=== PATIENT | female | born 1945 | race Caucasian/White ===

== ENCOUNTER 2017-03-31 00:42 | Inpatient (IN) | payer MEDICARE ==
[2017-03-31] VITALS (38 sets, daily range): BP systolic 96–181; BP diastolic 51–96; Ht 175.3 cm; Wt 58.4 kg
[~2017-03-31] VITALS: Ht 175.3 cm; Wt 58.4 kg
--- NOTE | ~2017-03-31 | HEMODYNAMI ---
PATIENT:PALOMA CALI MEDICAL RECORD: [id number] : 47 LOCATION:[place] [address] ADMISSION DATE: 03/31/17 Generatedon:03/31/201710:21 Patient name: PALOMA CALI Patient #: [id number] SSN: : 1945 Date of study: 03/31/2017 Page: Of Hemodynamic Procedure Report Patient Data Patient Demographics Procedure consent was obtained First Name: PALOMA Gender: Female Last Name: VIRAJ : 1945 Patient #: [id number] Age: 71 year(s) Race: Additional ID: [id number] Contact details [address]: [address] [place] [address] State: [place] City: [place] Zip code: [address] Admission Admission Data Admission Date: 03/31/2017 Admission Time: 0:42 Room #: [facility] Procedure Procedure Types Cath Procedure Diagnostic Procedure LHC [facility] w/Coronaries PCI Procedure Coronary Stent Initial Miscellaneous Procedures Moderate Sedation up to 30 minutes Procedure Description Procedure Date Procedure Date: 03/31/2017 Procedure Start Time: 9:46 Procedure End Time: 10:20 Procedure Staff Name Function Capo Casper MD Performing Physician Breanna Rey RT Scrub Neetu Sands RN Nurse Isaac Hansen RT Monitor Procedure Data Cath Procedure Fluoroscopy Diagnostic fluoroscopy Total fluoroscopy Time: 8 time: 8 min min Diagnostic fluoroscopy Total fluoroscopy dose: 477 dose: 477 mGy mGy Contrast Material Contrast Material Type Amount (ml) Isovue 300 103 Entry Location Entry Primary Successful Side Size Upsize Upsize Entry Closure Succes sful Closure Location (Fr) 1 (Fr) 2 (Fr) Remarks Device Remarks Femoral Right 5 Fr 6 Fr Exoseal artery Short Estimated blood loss: 10 ml Diagnostic catheters Device Type Used For End Catheter Placement Cordis 5Fr 3DRC Catheter Procedure (MP) Cordis 5Fr JL 4.0 Procedure Catheter (MP) Cordis 5Fr Pigtail Procedure Catheter (MP) Procedure Complications No complications Procedure Medications Medication Administration Route Dosage Oxygen NC 4 l/min Lidocaine 2% added to field 20 Heparin Flush Bag added to field 2 bags (1000units/500ml NS) 0.9% NaCl I.V. 100 ml/hr Versed I.V. 0.5 mg Fentanyl I.V. 25 mcg Solumedrol I.V. 125 mg Versed I.V. 0.5 mg Fentanyl I.V. 25 mcg Fentanyl I.V. 25 mcg Heparin Bolus I.V. 4000 units Versed I.V. 0.5 mg Versed I.V. 0.5 mg Fentanyl I.V. 25 mcg Hemodynamics Rest Heart Rate: 119 (bpm) Pressure Samples Time Site Value (mmHg) Purpose Heart Use Rate(bpm) 9:56 LV 133/-12,-3 Snapshot 98 9:56 AO 153/74(101) Pullback 94 9:56 LV 148/-2,24 Pullback 94 Gradients Valve Time Site 1 Site 2 Mean SEP/DFP Peak To Heart Use (mmHg) (sec/min) Peak Rate (mmHg) (bpm) Aortic 9:56 LV AO 0 10 0 94 148/-2,24 153/74(101) Calculations Valve P-P Mean Valve Index Valve Source Name Gradient Area Flow (cm2) Aortic 0 0 0 0 Snapshots Pre Cath Intra NCS Post Cath Vital Signs Time Heart Resp SPO2 etCO2 HY1ldev NIBP (mmHg) Rhythm Pain Sedatio n Rate (ipm) (%) (mmHg) (mmHg) Status Level (bpm) 9:32:48 91 22 96 0 0 158/89(107) NSR 0 (11) 10(A) , No pain 9:37:47 121 21 99 0 0 Measuring NSR 0 (11) 10(A) , No pain 9:39:11 115 19 98 0 0 Time NSR 0 (11) 10(A) Exceeded , No pain 9:43:29 102 19 96 0 0 147/84(103) NSR 0 (11) 10(A) , No pain 9:47:54 96 15 94 0 0 127/54(73) NSR 0 (11) 9(A) , No pain 9:52:03 100 15 96 0 0 117/70(101) NSR 0 (11) 9(A) , No pain 9:56:05 104 16 95 0 0 119/73(92) NSR 0 (11) 9(A) , No pain 10:00:11 94 14 96 0 0 119/78(105) NSR 0 (11) 9(A) , No pain 10:04:17 97 16 96 0 0 119/78(92) NSR 0 (11) 9(A) , No pain 10:08:20 91 16 94 0 0 139/84(123) NSR 0 (11) 9(A) , No pain 10:13:20 103 14 98 0 0 Measuring NSR 0 (11) 10(A) , No pain 10:14:41 103 18 97 0 0 Time NSR 0 (11) 10(A) Exceeded , No pain 10:19:02 105 21 99 0 0 166/106(146) NSR 0 (11) 10(A) , No pain Medications Time Medication Route Dose Verified Delivered Reason Notes Effectiveness by by 9:32:51 Oxygen NC 4 Capo Buffie used for l/min [facility] garnica MD 9:34:05 Solumedrol I.V. 125 Capo Buffie used for mg [facility] garnica MD 9:37:58 Lidocaine 2% added 20ml Capo Capo for local to vial [facility] anesthetic field MD TORIBIO 9:38:04 Heparin Flush added 2 Capo Capo used for Bag to bags [facility] procedure (1000units/500ml field MD TORIBIO NS) 9:38:15 0.9% NaCl I.V. 100 Capo Buffie Per physician ml/hr [facility] Tig[facility] Sands RN, MD 9:44:07 Versed I.V. 0.5 Capo Buffie for sedation mg [facility] Sands RN, MD 9:44:14 Fentanyl I.V. 25 Capo Buffie for sedation mcg [facility] Tig[facility] Sands RN, MD 9:51:46 Versed I.V. 0.5 Capo Buffie for sedation mg [facility] Tig[facility] Sands RN, MD 9:51:50 Fentanyl I.V. 25 Capo Buffie for sedation mcg [facility] Tig[facility] Sands RN, MD 9:55:16 Fentanyl I.V. 25 Capo Buffie for sedation mcg [facility] Tig[facility] Sands RN, MD 9:56:25 Heparin Bolus I.V. 4000 Capo Buffie for verifi ed units [facility] Tigre Sands RN anticoagulation with dr MD copeland 10:02:00 Versed I.V. 0.5 aCpo De [place] for sedation mg [facility] Tigre Sands RN, MD 10:05:31 Fentanyl I.V. 25 Capo De Anda for sedation mcg [facility] Tig[facility] Sands RN, MD 10:05:35 Versed I.V. 0.5 Capo De And[place] for sedation mg [facility] Tig[facility] Sands RN, MD Procedure Log Time Note 9:14:07 Neetu Sands RN sent for patient. Start room use. 9:14:08 Time tracking: Regular hours 9:14:12 Plan of Care:Hemodynamics will remain stable., Cardiac rhythm will remain stable., Comfort level will be maintained., Respiratory function will remain adequate., Patient/ family verbilizes understanding of procedure., Procedure tolerated without complication., Recovers from procedure without complications.. 9:24:19 Patient received from CVICU to CCL 1 Alert and oriented. Tansferred to table in Supine position. 9:24:20 Warm blankets applied, and andrey hugger turned on for patient comfort. 9:24:21 Correct patient and procedure confirmed by team. 9:24:22 Signed procedure consent form obtained from patient. 9:24:23 ECG and BP/O2 sat monitors applied to patient. 9:31:37 Vital chart was started 9:32:51 Oxygen 4 l/min NC was administered by Neetu Sands RN; used for procedure; 9:34:05 Solumedrol 125 mg I.V. was administered by Neetu Sands RN; used for procedure; 9:37:58 Lidocaine 2% 20ml vial added to field was administered by Capo Casper MD; for local anesthetic; 9:38:04 Heparin Flush Bag (1000units/500ml NS) 2 bags added to field was administered by Capo Casper MD; used for procedure; 9:38:15 0.9% NaCl 100 ml/hr I.V. was administered by Neetu Sands RN; Per physician; 9:39:08 Baseline sample Acquired. 9:39:16 Rhythm: sinus tachycardia 9:39:39 H&P Date Dictated: 03/31/2017 Within 30 days and on chart.. 9:39:39 Pre-procedure instructions explained to patient. 9:39:40 Pre-op teaching completed and patient verbalized understanding. 9:39:47 Family unavailable. 9:39:48 Patient NPO since Midnight. 9:39:52 Is the patient allergic to Iodine/contrast media? Yes. 9:40:11 Was the patient premedicated? Yes 9:40:13 Is patient on blood thinner?Yes 9:40:16 ACC The patient was administered the following blood thiners within the last 24 hours: ACCPlavix 9:40:19 Patient diabetic? No. 9:40:21 Patient not . Patient is over age 55. 9:40:23 Previous problem with sedation/anesthesia? No ? 9:40:45 Snore? Yes 9:40:47 Sleep apnea? No 9:40:48 Deviated septum? No 9:40:49 Opens mouth fully? Yes 9:40:49 Sticks out tongue? Yes 9:40:51 Airway obstruction? No ? 9:40:55 Dentures? Yes OUT 9:41:00 Pre procedure: right dorsailis pedis pulse 1+ Palpable, but thready & weak; easily obliterated 9:41:02 Patient pain scale 0/10 ?. 9:41:10 IV patent on arrival in left forearm with 0.9% NaCl at [facility]. 9:41:12 Lab results completed and on chart. 9:41:16 Right groin area was prepped with chlora-prep and draped in sterile fashion 9:41:17 Alarms reviewed by R. N. 9:41:17 Sharps counted by scrub and verified by R.N. 9:41:25 Use device set Femoral Dx 9:41:30 Tegaderm 4 x 4 opened to sterile field. 9:41:31 Acist Hand Control opened to sterile field. 9:41:31 Acist Manifold opened to sterile field. 9:41:33 Acist Syringe opened to sterile field. 9:41:33 Bag Decanter opened to sterile field. 9:41:33 Medline Cath Pack opened to sterile field. 9:41:34 Terumo 5Fr [place] Sheath opened to sterile field. 9:41:34 St Mikael 260cm J .035 wire opened to sterile field. 9:41:35 Diagnostic Infinity 5Fr Multipack catheter opened to sterile field. 9:43:48 Zero performed for pressure channel P1 9:43:56 --------ALL STOP TIME OUT------ 9:43:56 Final Timeout: patient, procedure, and site verified with staff and physician. All members of the team are in agreement. 9:43:58 Right groin site verified by team. 9:44:01 Physical assessment completed. ASA score P 3 - A patient with severe systemic disease as per Cpao Casper MD. 9:44:04 Sedation plan: IV Moderate Sedation Versed, Fentanyl 9:44:07 Versed 0.5 mg I.V. was administered by Neetu Sands RN; for sedation; 9:44:14 Fentanyl 25 mcg I.V. was administered by Neetu Sands RN; for sedation; 9:46:22 Procedure started. 9:46:22 Full Disclosure recording started 9:46:26 Local anesthetic to right femoral artery with Lidocaine 2% by Capo Casper MD.INITIAL ACCESS ONLY 9:49:46 A 5 Fr sheath was inserted into the Right Femoral artery 9:50:00 Terumo ADVANTAGE 260CM glide wire opened to sterile field. 9:50:05 A Cordis 5Fr 3DRC Catheter (MP) was advanced over the wire and used for Procedure. 9:50:19 Glidewire used to advance catheter. 9:51:45 RCA angiography performed. 9:51:46 Versed 0.5 mg I.V. was administered by Neetu Sands RN; for sedation; 9:51:50 Fentanyl 25 mcg I.V. was administered by Neetu Sands RN; for sedation; 9:51:54 Catheter exchanged over wire. 9:53:21 A Cordis 5Fr JL 4.0 Catheter (MP) was advanced over the wire and used for Procedure. 9:53:32 LCA angiography performed. 9:53:59 Catheter exchanged over wire. 9:55:16 Fentanyl 25 mcg I.V. was administered by Neetu Sands RN; for sedation; 9:55:18 A Cordis 5Fr Pigtail Catheter (MP) was advanced over the wire and used for Procedure. 9:55:35 Terumo 6Fr [place] Sheath opened to sterile field. 9:55:35 Mcnamara Whisper J 300cm 0.014 guide wire opened to sterile field. 9:55:36 [employer]R [employer] Launcher 6Fr HS I guide catheter opened to sterile field. 9:55:36 Learnmetrics BasixCompak Inflation Kit opened to sterile field. 9:56:25 Heparin Bolus 4000 units I.V. was administered by Neetu Sands RN; for anticoagulation; verified with dr copeland 9:56:28 LV angiography performed. 9:56:30 LV gram done using LOPEZ 9:56:40 EF : 55 % 9:56:49 Injector settings: Ml/sec: 10, Volume: 20, 9:56:51 LV hemodynamics recorded. 9:56:53 Catheter exchanged over wire. 9:57:10 Sheath upsized to a 6 Fr Short. 9:57:30 Study PCI Site: Elim Ira mRCA has 90% stenosis. 9:57:34 ACC Pre-intervention KALINA Flow is 3. 9:58:04 6 Fr HS 1 guide catheter was inserted over the wire 9:59:16 Whisper wire advanced. 10:01:12 Wire advanced across lesion. 10:02:00 Versed 0.5 mg I.V. was administered by Neetu Sands RN; for sedation; 10:02:05 Haakon 3.0x15 balloon advanced distal to lesion, Whisper wire exchanged for Choice PT XS. 10:02:15 [place] Intelleflex Choice PT Extra Support J 300cm .014 gu opened to sterile field. 10:02:40 Inflation number: 1 A [place] Sci Haakon 3.0 X 15 balloon was prepped and advanced across the Prox RCA, then inflated to 10 JAYJAY for 0:30 (min:sec). 10:03:15 Multiple inflations made at 10 Atms. 10:05:31 Fentanyl 25 mcg I.V. was administered by Neetu Sands RN; for sedation; 10:05:35 Versed 0.5 mg I.V. was administered by Neetu Sands RN; for sedation; 10:06:08 Multiple inflations made at 10 Atms. 10:06:44 Balloon removed over the wire. 10:09:20 Inflation Number: 2 A QuizFortunetronic Integrity 3.0 X 30 stent was prepped and advanced across the Prox RCA. The stent was deployed at 14 JAYJAY for 0:45 (min:sec). 10:10:41 ACC Post-intervention KALINA Flow is 3. 10:10:43 Stent catheter was removed intact over wire. 10:10:43 Wire removed. 10:10:44 Guide catheter removed. 10:10:52 Cordis 6Fr Exoseal opened to sterile field. 10:11:05 Sheath removed intact; hemostasis achieved with Exoseal to the Right Femoral artery. 10:11:07 Procedure ended.(Physican Out) 10:11:30 Fluoroscopy time 08.00 minutes. 10:11:58 Flurop Dose total: 477 10:11:58 Fluoroscopy dose: 477 mGy 10:12:02 Contrast amount:Isovue 300 103ml. 10:12:04 Sharps counted by scrub and verified by R.N. 10:12:05 Insertion/operative site no bleeding no hematoma. 10:12:08 Post-op/insertion site Right Femoral artery dressed using a 4 x 4 and Tegaderm. 10:12:09 Post Procedure Pulses reassessed and unchanged 10:12:13 Post-procedure physical assessment completed. ASA score P 3 - A patient with severe systemic disease as per Capo Casper MD. 10:12:16 Post procedure rhythm: unchanged. 10:12:19 Estimated blood loss: 10 ml 10:12:20 Post procedure instruction explained to patient.Patient verbalizes understanding. 10:12:36 Procedure type changed to Cath procedure, Diagnostic procedure, LHC, LHC w/Coronaries, PCI procedure, Coronary Stent Initial, Miscellaneous Procedures, Moderate Sedation up to 30 minutes 10:12:38 Patient needs reinforcement of post procedure teaching. 10:12:41 Procedure Complication : No complications 10:13:14 Procedure and supply charges have been captured, reviewed, submitted and are correct. 10:19:02 Vital chart was stopped 10:19:03 See physician's report for complete and final results. 10:20:17 Due to the pt's inability to keep right leg down, Femstop placed at 140. 10:20:26 St Mikael Femstop Arch Gold opened to sterile field. 10:20:47 Report given to CVICU. 10:20:50 Patient transfered to CVICU with Bed. 10:20:52 Procedure ended. 10:20:52 Full Disclosure recording stopped 10:20:58 End room use (Document Last) Intervention Summary Intervention Notes Time ActionType Lesion and Equipment Action# Pressure Duration Attributes Used 10:02:40 Inflate Prox RCA [place] 1 10 00:30 balloon Sci Haakon 3.0 X 15 balloon 10:09:20 [address] stent Prox RCA Medtronic 2 14 00:45 Integrity 3.0 X 30 stent Device Usage Item Name Manufacture Quantity Catalog Number Hospital Part Current Mini mal Lot# / Charge Number Stock Stock Serial# Code Tegaderm 4 3M 1 [id number] [id number] [id number] 5 x 4 Acist Hand Acist 1 07734 842332 961843 614022 5 Control Medical Systems Inc Acist Acist 1 85635 673756 623157 226706 5 Manifold Medical Systems Inc Acist Acist 1 14022 292481 883059 933828 20 Syringe Medical Systems Inc Bag Microtek 1 2002S 261355 19570 434076 5 DeceLearning Connections Medical Inc. Medline Cardinal 1 [id number] 341990 97812 893695 5 Cath Pack Health Terumo 5Fr Terumo 1 [id number] 435006 640345 839142 [address] [place] [address] St Mikael 1 [id number] 415371 066212 896136 30 260cm J .035 wire Diagnostic Cardinal 1 [id number] 164771 03214 536525 30 Infinity Health 5Fr Multipack catheter Terumo Terumo 1 [id number] 233383 097375 5 ADVANTAGE 260CM glide wire Cordis 5Fr Cardinal 1 [id number] 5 3DRC Health Catheter (MP) Cordis 5Fr Cardinal 1 411871 5 JL 4.0 Health Catheter (MP) Cordis 5Fr Cardinal 1 [id number] 5 Pigtail Health Catheter (MP) Terumo 6Fr Terumo 1 [id number] 006982 961858 853388 40 [place] Sheath Mcnamara Mcnamara 1 [id number] 530968 282485 984869 5 Whisper J Vascular 300cm 0.014 guide wire Medtronic Medtronic 1 [id number] 198100 67791 381864 1 Launcher 6Fr HS I guide catheter Merit Merit 1 BH0073 221775 469595 223108 15 BasixCompak Medical Inflation Kit [place] Sci [place] 1 [id number] 24081005 951132 5 Choice PT Scientific Extra Support J 300cm .014 gu [place] Sci [place] 1 [id number] 927329 989415 525250 1 [id number] Haakon Scientific 3.0 X 15 balloon Medtronic Medtronic 1 [id number] 143418 880826 9 [id number] Integrity 3.0 X 30 stent Cordis 6Fr Cardinal 1 EX600 642776 424656 819839 [address] [facility] 1 [id number] 738053 344477 062951 5 Femstop Arch Gold Signature Audit Novice Stage Time Signature Unsigned Intra-Procedure 03/31/2017 Isaac Hansen 10:21:10 AM RT(R) Signatures Monitor : Isaac Hansen RT Signature : Date : Time : [place] [id number] [place] [address]
--- NOTE | 2017-03-31 00:40 | NUR ---
ARRIVED TO ROOM CV06 VIA AMBULANCE STRETCHER. AWAKE, AMSWERS MOST QUESTIONS APPROPRIATELY. LEFT AC 20G PIV SALINE LOCKED. INCONTINENT BRIEF ON AND CLEAN. LEFT HEEL ULCER NOTED TO LEFT LEG. PLACED ON CONTINUOUS MONITORING EQUIPMENT. ST WITH FREQUENT PAC'S. O2 @ 2LPM/NC. LEFT LEG MOTTLED TO LOWER HALF OF LEG AND COOL TO TOUCH. UNABLE TO FIND A PEDAL PULSE TO LLE. POSSIBLE INTERMITTENT POSTERIOR TIBIAL TO LLE VIA DOPPLER. FEMORAL LLE PALPATED AND AUDIBLE BY DOPPLER. LEFT KNEE SCAB NOTED AND MEASURED WOUNDS. LEFT SIDED WEAKNESS MORE LEG THAN ARM FROM PREVIOUS STROKE. BEGINNING ADMISSION ASSESSMENT AND HISTORY.
--- NOTE | 2017-03-31 01:08 | NUR ---
12-LEAD EKG OBTAINED.
--- NOTE | 2017-03-31 01:35 | NUR ---
DR. PALM RETURNED PAGE. INFORMED OF EKG RHYTHM AND LEFT LEG WITHOUT PULSE BUT THE OBVIOUS FEMORAL. NEW ORDERS RECEIVED.
--- NOTE | 2017-03-31 01:50 | NUR ---
CORDARONE GTT STARTED @ 0.5MG/MIN TO LEFT AC PIV. IV WORKING WELL.
[2017-03-31 02:26] LABS: BASOPHILS 0.1 % (0-2); EOSINOPHILS 0.4 % (0-7); HEMATOCRIT 31.7 % (36.0-48.0); HEMOGLOBIN 10.5 g/dL (12-16); IMMATURE GRANULOCYTES 0.7 % (0-5); LYMPHOCYTES 18.7 % (15-50); MCH 29.2 pg (26.0-34.0); MCHC 33.1 g/dL (31.0-37.0); MCV 88.3 fL (80.0-100.0); MEAN PLATELET VOLUME 8.8 fL (7.4-10.4); MONOCYTES 7.6 % (2-11); NEUTROPHILS 72.5 % (40-80); PLATELET COUNT 260 10x3/uL (130-400); RBC 3.59 10x6/uL (4.00-5.40); RDW 14.4 % (11.5-14.5); WBC 9.6 10x3/uL (4.8-10.8)
[2017-03-31 02:41] LABS: INR 1.05 (0.85-1.17); PROTIME 13.6 SECONDS (11.6-15.0)
[2017-03-31 02:43] LABS: ALBUMIN 2.5 g/dL (3.4-5.0); ALKALINE PHOSPHATASE 175 U/L (46-116); ALT (SGPT) 27 U/L (10-68); BILIRUBIN - TOTAL 0.57 mg/dL (0.2-1.3); CALCIUM 9.6 mg/dL (8.5-10.1); CREATININE - SERUM 0.7 mg/dL (0.6-1.3); GLUCOSE 101 mg/dL (74-106); PROTEIN - SERUM 7.1 g/dL (6.4-8.2); UREA NITROGEN 26 mg/dL (7-18); eGFR NON AFRICAN AMERICAN 88 mL/min (90-120)
[2017-03-31 02:49] LABS: CALC OSMOLALITY 246 mosm/kg (275-300); CARBON DIOXIDE 23.9 mmol/L (21.0-32.0); CHLORIDE - SERUM 94 mmol/L (98-107); POTASSIUM - SERUM 3.4 mmol/L (3.5-5.1); SODIUM 120 mmol/L (136-145)
[2017-03-31] MEDS ORDERED: LYRICA75 MG PO (02:58)
[2017-03-31] MEDS ORDERED: REMERON15 MG PO (03:00)
[2017-03-31] MEDS ORDERED: CYCLOBENZAPRINE10 MG PO (03:00)
[2017-03-31] MEDS ORDERED: IMODIUM2 MG PO (03:05)
[2017-03-31] MEDS ORDERED: METOPROLOL TART50 MG PO (03:06)
[2017-03-31] MEDS ORDERED: K-DUR20 MEQ PO (03:07)
[2017-03-31] MEDS ORDERED: PRAVACHOL20 MG PO (03:07)
[2017-03-31] MEDS ORDERED: MILK OF MAGNESI30 ML PO (03:09)
[2017-03-31] MEDS ORDERED: ACETAMINOPHEN325 MG PO (03:09)
[2017-03-31] MEDS ORDERED: MAG-OX 400 MG400 MG PO (03:11)
[2017-03-31] MEDS ORDERED: BIOFREEZE118 ML TOPICAL (03:11)
[2017-03-31] MEDS ORDERED: STRESSTABS WITH1 TAB PO (03:12)
[2017-03-31] MEDS ORDERED: ULTRAM50 MG PO (03:12)
[2017-03-31] MEDS ORDERED: ASCORBIC ACID500 MG PO (03:13)
[2017-03-31] MEDS ORDERED: FLOVENT HFA 22012 GM INH (03:13)
[2017-03-31] MEDS ORDERED: VENTOLIN HFA18 GM INH ×2 (03:14→03:15)
[2017-03-31 03:16] LABS: CKMB 41.1 U/L (0.0-3.6); CREATINE KINASE 408 UL (21-215); TROPONIN-I 6.188 ng/mL (0.000-0.060)
[2017-03-31] MEDS ORDERED: LOPID600 MG PO (03:16)
[2017-03-31] MEDS ORDERED: PHENYTEK200 MG PO (03:17)
[2017-03-31] MEDS ORDERED: NEXIUM40 MG PO (03:17)
[2017-03-31] MEDS ORDERED: CELEXA20 MG PO (03:18)
[2017-03-31] MEDS ORDERED: PLAVIX75 MG PO (03:18)
[2017-03-31] MEDS ORDERED: PENTOXIFYLLINE400 MG PO (03:18)
[2017-03-31] MEDS ORDERED: VASOTEC20 MG PO (03:19)
[2017-03-31] MEDS ORDERED: HCTZ25 MG PO (03:19)
--- NOTE | 2017-03-31 03:40 | NUR ---
DR. PALM PAGED AND THEN INFORMED OF INCREASED HEART RATE 150'S; CRITICAL LAB [id number]; ALSO TOLD OF SODIUM AND POTASSIUM RESULTS. NEW ORDERS RECEIVED. WILL MONITOR.
--- NOTE | 2017-03-31 03:45 | NUR ---
LEFT AC 20G PIV BEEN PULLED OUT BY PATIENT. NEW IV STARTED X1 ATTEMPT TO LEFT FA 20G. IV CARDIZEM BOLUS GIVEN PRESCRIBED. WILL MONITOR.
--- NOTE | 2017-03-31 04:37 | NUR ---
O2 SATS 85%. PULLED UP AND TURNED TO RT SIDE. CONSTANTLY PICKING AT VAGINA AREA THINKING THERE IS SOME STICKY STUFF ON HER HAIR. WET WIPE GIVEN PER REQUEST AND WIPED SELF DOWN. O2 HAD TO INCREASE TO 6L/MIN. WILL MONITOR.
--- NOTE | 2017-03-31 06:00 | NUR ---
PATIENT'S CALLED. INFORMED OF UPCOMING PROCEDURE TODAY. HE WON'T BE HERE UNTIL AFTER THAT REPORTED. WILL MONITOR.
--- NOTE | 2017-03-31 06:20 | NUR ---
PULLED UP IN BED AND TURNED TO RT SIDE TO KEEP OFF LEFT. NO URINE NOTED IN INCONTINENT BRIEF. WILL MONITOR.
[2017-03-31 09:11] LABS: BASOPHILS 0.1 % (0-2); EOSINOPHILS 0.6 % (0-7); HEMATOCRIT 35.2 % (36.0-48.0); HEMOGLOBIN 11.6 g/dL (12-16); IMMATURE GRANULOCYTES 0.7 % (0-5); LYMPHOCYTES 13.6 % (15-50); MCH 29.4 pg (26.0-34.0); MCV 89.1 fL (80.0-100.0); MEAN PLATELET VOLUME 8.7 fL (7.4-10.4); MONOCYTES 6.2 % (2-11); NEUTROPHILS 78.8 % (40-80); PLATELET COUNT 249 10x3/uL (130-400); RBC 3.95 10x6/uL (4.00-5.40); RDW 14.3 % (11.5-14.5); WBC 8.4 10x3/uL (4.8-10.8)
[2017-03-31 09:22] LABS: CALC OSMOLALITY 257 mosm/kg (275-300); CALCIUM 9.6 mg/dL (8.5-10.1); CARBON DIOXIDE 23.6 mmol/L (21.0-32.0); CHLORIDE - SERUM 95 mmol/L (98-107); CREATININE - SERUM 0.6 mg/dL (0.6-1.3); GLUCOSE 101 mg/dL (74-106); POTASSIUM - SERUM 3.4 mmol/L (3.5-5.1); SODIUM 127 mmol/L (136-145); UREA NITROGEN 21 mg/dL (7-18); eGFR NON AFRICAN AMERICAN > 90 mL/min (90-120)
--- NOTE | 2017-03-31 11:28 | NUR ---
0730-RECIEVED AWAKE AND ALERT-AWARE OF SITUATION AND PLANNED PRODEDURE-PRIOR TO SIGNING FOR CARDIAC CATH PROCEDURE-PT STRESSED SHE IS A DO NOT RECESISTATE-CLARIFIED WITH PT THIS MEANS NO CHEST COMPRESSIONS IF HEART STOPS-NO LIFE SUPPORT MEASURES-PT STATED YES THATS RIGHT -MY HAS PAPER WORK-HAD PT SIGN [facility] NO CODE SHEET AND INITIAL-WITH RN WITNESS-INFORMED DR BURTON OF SAME-AND SIGNED WELL AFTER SPOKE WITH PT-CONSENT OBTAINED FOR CARDIAC CATH AND INFORMED OF RISK AND BENEFIT-PT AGREED TO PROCEED-OFFICE PROFESSIONAL STAFF NOTIFIED OF PT REQUEST REGARDING CODE STATUS 0850-PT TO OFFICE PROFESSIONAL -CORDARONE REMAINS AT 1MG/MIN-CONTINUED PERIODS OF AFIB DIRECTED BY DR BURTON 1045-RETURNED TO CV6-ALERT AND RESPONDS EASILY TO VERBAL-SUPINE -R PP NOT ABLE WITH DOPPLER-FEM STOP DECREASED TO 100MM FROM 120-HEMOSTASIS MAINTAINED AND PP FAINT WITH DOPLER 1100-FEMSTOP DECREASED TO 80MM-PP FAINT WITH DOPPLER-NO CHANGE-PRODUCTIVE COUGH 1115-FEMSTOP DECREASED TO 60MM-PP FAINT WITH DOPPLER
--- NOTE | 2017-03-31 17:25 | NUR ---
1230-FEMSTOP OFF-NOTED BOUNDING R PPP-DOPPLER LEFT-NOTED QUARTER SIZE HEMATOMA TO SITE FIRM TO TOUCH- 5972-[id number]-N GROIN REMAINS THE SAME- 1500-INCONTINENT OF URINE-COMPLETE SKIN CARE DONE AND REPOSITIONED-EXPRESSED CONCERN REGARDING FAMILY WHERE ABOUTS-CALLED NUMBER PROVIDED AND NO ANSWER 1600-DAUGHTER RETURNED CALL-INFORMED SAME OF PT CONCERN 1730--ASSISTED WITH DINNER TRAY-KBRN
--- NOTE | 2017-03-31 19:25 | NUR ---
SHIFT ASSESSMENT COMPLETED. SEE ASSESSMENT FLOWSHEET. AWAKE. ANSWERS QUESTIONS APPROPRIATELY. LEFT FOOT MOTTLED AND ELEVATED ONTO PILLOWS. NO PULSE NOTED IN LEFT PEDAL AREA OR P.T. DOPPLERED POPLITEAL PULSE. WILL MONITOR.
--- NOTE | 2017-03-31 20:49 | NUR ---
PLACED BACK ONTO O2 VIA NC AT 2LPM DUE TO O2 SATS 90% ON ROOM AIR. ST TO AFIB STILL NOTED ON THE MONITOR IN THE 110'S. CORDARONE INFUSING TO LEFT FA PIV 20G AT 0.5MG/MIN OR 16.7ML/HR. NS @ 5ML/HR RESTARTED TO ORDERED. WILL MONITOR.
[2017-03-31] MEDS ORDERED: HYDROCODONE-APA1 TAB PO (21:57)
--- NOTE | 2017-03-31 21:59 | NUR ---
DR. VERDUGO CALLED AND INFORMED OF PATIENT'S DAUGHTER CONCERN FOR HOME MEDS AND ESPECIALLY ANTI-SEIZURE MEDS. NEW ORDERS RECEIVED FROM DR. VERDUGO.
--- NOTE | 2017-03-31 22:16 | NUR ---
PO HYDROCODONE GIVEN. WANTED TO TAKE ONLY 1 OUT OF THE ORDERED 2 PILLS AT THIS TIME. WILL MONITOR AND AWAIT OTHER NEWLY ORDERED MEDS.
--- NOTE | 2017-03-31 22:45 | NUR ---
PO DILANTIN GIVEN NOW OBTAINED FROM [employer] LINEMAN. SWALLOWS WITHOUT DIFFICULTY. REASSESSMENT COMPLETED. SEE ASSESSMENT FLOWSHEET. INCONTINENT OF URINE AT 2230 AND SELMA CARE COMPLETED AND NEW PAD PLACED. ALSO PLACED A INCONTINENT BRIEF PER DAUGHTER'S REQUEST PER PATIENT STATED TO HER AT VISITATION TIME. REPOSITIONED TO RT SIDE. WILL MONITOR.
--- NOTE | 2017-03-31 23:15 | NUR ---
PULLING BLANKETS OFF. ASKED IF SHE WAS HOT, REPORTED "A LITTLE". SOME BLANKETS REMOVED. ALSO TOOK B/P CUFF OFF AND REPLACED BACK ON. ENCOURAGED TO LEAVE MONITORING EQUIPMENT ON.
[2017-04-01] VITALS (25 sets, daily range): BP systolic 100–190; BP diastolic 27–100
--- NOTE | 2017-04-01 01:10 | NUR ---
B/P CUFF NOT WORKING PROPERLY. PLACED NEW CUFF AND SMALLER SIZE TO FIT ARM ON RT ARM. REQUESTED TO HAVE SECOND PAIN PILL HYDROCODONE GIVEN. WILL MONITOR B/P.
--- NOTE | 2017-04-01 01:40 | NUR ---
PICKING AT INCONTINENT BRIEF WITH HER HAND. WHEN ASKED WHAT SHE WAS DOING, STATES "ITS WET". INFORMED TO LET ME KNOW WHEN IT IS SO WE CAN GET HER CLEANED UP. SELMA CARE COMPLETED AND NEW BRIEF PLACED ON. TURNED AND REPOSITIONED FOR COMFORT. PULLED UP IN BED. HANDS WASHED. WILL MONITOR.
--- NOTE | 2017-04-01 03:30 | NUR ---
REASSESSMENT COMPLETED. SEE ASSESSMENT FOR DETAILS. NO NEW ACUTE CHANGES NOTED. WILL MONITOR.
--- NOTE | 2017-04-01 03:40 | NUR ---
REPORTING SHE IS "WET". CLEANSED URINE FROM PERINEAL AREA. NEW INCONTINENT BRIEF PLACED ON. PULLED UP IN BED AND TURNED FOR REPOSITIONING. WILL MONITOR.
--- NOTE | 2017-04-01 05:45 | NUR ---
PLACED O2 SENSOR BACK ONTO FINGER. RT HAND TOUCHING INCONTINENT BRIEF. ASKED IF SHE IS WET. STATES "NO". SIP OF WATER GIVEN PER REQUEST. WILL MONITOR.
--- NOTE | 2017-04-01 10:26 | OP ---
PATIENT NAME: PALOMA CALI MEDICAL RECORD: [id number] :47 LOCATION:[place] ADMISSION DATE:03/31/17 SURGEON: JUAN PABLO BURTON MD DATE OF OPERATION: 03/31/2017 PROCEDURE: Left heart catheterization, selective coronary angiography, right femoral artery approach. CATHETERS: A 5-Hungarian sheath, 5/4 left and right Birdie, 5/4 pig. The procedure was well tolerated. We proceeded immediately to PTCA stenting of the right coronary artery. FINDINGS: Left ventriculography in 30-degree LOPEZ view: Normal wall motion, normal systolic function. CORONARY ANATOMY: LEFT MAIN: Left main is free of disease. LAD: A large vessel, free of disease. CIRCUMFLEX: Moderate sized vessel, about 70% stenosis mid portion. 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 PLAN: Intervention of this vessel momentarily. DESCRIPTION OF PROCEDURE: A 5-Hungarian sheath was changed for 6-Hungarian sheath. A hockey stick guide catheter was applied with excellent guide catheter support. Next, a Whisper wire was placed across multiple lesions in the right coronary down this portion of vessel. Next, a 3-0 [place] balloon was placed distally and used in the [place] as an exchange catheter. We placed a PT export wire. Then, we would make multiple inflations up and down the right coronary, up to 10 atmospheres pre-stent deployment. Next, a 3.0 x 30 mm Integrity nondrug eluting stent was placed across the multiple areas of occlusion and inflated up to 14 atmospheres. Following this, shows better than expected result with no significant residual throughout the entirety of the right coronary with multiple ____ no significant residual. KALINA flow was 3 throughout the procedure. The patient was previously on Plavix. Heparin was given in the lab. Sheath was closed with ExoSeal device. TRANSINT:[id number] Voice Confirmation ID: [id number] DOCUMENT ID: [id number] JUAN PABLO BURTON MD at 1026 CC: [id number] DICTATION DATE: 03/31/17 1016 CLASSROOM TEACHER: 03/31/17 1052 ADM IN [place] [id number] [place] [address]
--- NOTE | 2017-04-01 10:26 | HP ---
PATIENT: PALOMA CALI MEDICAL RECORD: [id number] ACCOUNT: [id number] LOCATION:[facility]06 : 47 ADMISSION DATE: 03/31/17 HISTORY AND PHYSICAL EXAMINATION HISTORY OF PRESENT ILLNESS: A 71-year-old lady with history of peripheral vascular disease. She has a history of AAA in the past. No known history of atrial fibrillation, who was admitted with chest pain, dyspnea and shortness of breath, found to be in atrial fibrillation, has intermittently been in sinus since transfer from [place]. Pain is improved. We are asked to see her concerning her cardiovascular status. PAST MEDICAL HISTORY: Includes: 1. History of hypertension. 2. Diabetes mellitus. 3. Peripheral vascular disease. 4. Cerebrovascular disease status post CVA. 5. Obstructive pulmonary disease. ALLERGIES: PENICILLIN, IODINE. MEDICATIONS: Include Plavix 75 every day, Trental 400 b.i.d., enalapril 20 every day, gemfibrozil 600 b.i.d., metoprolol 50 b.i.d., pravastatin 20 every day, Celexa 20 every day, Lyrica 75 q.h.s., phenytoin 200 b.i.d., potassium supplementation, HCTZ 25 every day, Nexium 40 every day. SOCIAL HISTORY: Currently, resides in a residential due to physical limitations, no mental limitations whatsoever. Does have good family support. PHYSICAL EXAMINATION: GENERAL: Pleasant female in no acute distress, appears stated age. VITAL SIGNS: Pulse currently 92 and regular, although intermittently atrial fibrillation, blood pressure 145/73. HEENT: Normocephalic, atraumatic. NECK: No JVD or bruit. HEART: Regular. A 2-3/6 systolic ejection murmur. LUNGS: Good air excursion. ABDOMEN: Soft, nontender. EXTREMITIES: Pulses are decreased, left greater than right. IMPRESSION: Acute coronary syndrome. Discussed options with the patient. She does want to proceed with angiography; however, long-term does not wish to have heroic measures. This was discussed from nurse. Further recommendations based on clinical course. TRANSINT:[id number] Voice Confirmation ID: [id number] DOCUMENT ID: [id number] HISTORY AND PHYSICAL [id number] PALOMA CALI GREGORY A MD at 1026 CC: [id number] DICTATION DATE: 03/31/17 0847 ITINERANT TEACHER ASSISTANT: 03/31/17 0932 ADM IN [place] [id number] [place] [address]
--- NOTE | 2017-04-01 19:00 | NUR ---
REPORT RECEIVED AND ASSESSMENT COMPLETED. SEE FLOWSHEET FOR FULL DETAILS. VSS. PT HAS A HR OF 97 IN CONTROLLED A FIB WITH PVC'S AND PAC'S. NS INFUSING AT 50 ML/HR. WILL MONITOR FOR CHANGES. VSS.
--- NOTE | 2017-04-01 21:00 | NUR ---
2100 MEDS GIVEN. NO OTHER CHANGES AT THIS TIME. WILL CONTINUE TO MONITOR
--- NOTE | 2017-04-01 21:40 | NUR ---
Late Entry- 919 CM received telephone call regarding transfer of patient back to nursing facility, [facility]. In review of medical record, patient has serum sodium of 120 and cl 94. In addition pulse was 102- 120 with B/P range 178/97-190/91. Cm advised primary nurse that facility would likely not approve readmission with these issues. Received CB and nurse advised patient would not be discharged today. CM will follow to assist discharge back to nursing facility when medical stable.
--- NOTE | 2017-04-01 23:00 | NUR ---
REASSESSMENT COMPLETED SEE FLOWSHEET FOR FULL DETAILS. NO OTHER CHANGES IN STATUS AT THIS TIME VSS WILL CONTINUE TO MONITOR
[2017-04-02] VITALS (13 sets, daily range): BP systolic 124–171; BP diastolic 57–97
--- NOTE | 2017-04-02 00:51 | NUR ---
NO CHANGES IN STATUS AT THIS TIME. WILL CONTINUE TO MONITOR.
--- NOTE | 2017-04-02 03:00 | NUR ---
REASSESSMENT COMPLETED. SEE FLOWSHEET FOR FULL DETAILS. VSS. WILL CONTINUE TO MONITOR. PT C/O FOOT PAIN. PRN NORCO GIVEN. HEAT APPLIED.
--- NOTE | 2017-04-02 05:00 | NUR ---
PT LABS DRAWN. CRITICAL POTASSIUM OF 2.[address] MEANS NOTIFIED AND NEW ORDERS RECIEVED FOR 40MEQ OF POTASSIUM OVER 4 HOURS. PT C/O HIP PAIN. IN ADDITION TO PRN MEDS, AND REPOSITIONING, PT RECEIVE A HEATING PAD. NO OTHER CHANGES AT THIS TIME. WILL CONTINUE TO MONITOR.
[2017-04-02 05:15] LABS: BASOPHILS 0.1 % (0-2); HEMOGLOBIN 10.6 g/dL (12-16); MCH 29.3 pg (26.0-34.0); MCHC 33.1 g/dL (31.0-37.0); MCV 88.4 fL (80.0-100.0); MEAN PLATELET VOLUME 8.6 fL (7.4-10.4); MONOCYTES 8.1 % (2-11); NEUTROPHILS 70.8 % (40-80); RBC 3.62 10x6/uL (4.00-5.40); RDW 14.1 % (11.5-14.5); WBC 6.8 10x3/uL (4.8-10.8)
[2017-04-02 05:17] LABS: PLATELET COUNT 303 10x3/uL (130-400)
[2017-04-02 05:20] LABS: CALCIUM 8.8 mg/dL (8.5-10.1); CARBON DIOXIDE 27.9 mmol/L (21.0-32.0); CHLORIDE - SERUM 97 mmol/L (98-107); CREATININE - SERUM 0.5 mg/dL (0.6-1.3); GLUCOSE 94 mg/dL (74-106); SODIUM 134 mmol/L (136-145); eGFR NON AFRICAN AMERICAN > 90 mL/min (90-120)
[2017-04-02 05:21] LABS: CALC OSMOLALITY 266 mosm/kg (275-300); UREA NITROGEN 10 mg/dL (7-18)
[2017-04-02 05:22] LABS: POTASSIUM - SERUM 2.3 mmol/L (3.5-5.1)
--- NOTE | 2017-04-02 07:00 | NUR ---
SHIFT REPORT RECEIVED. ASSUMED CARE OF PATIENT. ASSESSMENT COMPLETE. SEE FLOWSHEET FOR FINDINGS. PT ALERT AND CONVERSANT. ON ROOM AIR. UNCONTROLLED A-FIB NOTED. PT IN ADULT BRIEF. IS INCONTINENT.
--- NOTE | 2017-04-02 09:21 | NUR ---
PT SLEEPING AT THIS TIME. NO DISTRESS NOTED. LEADS OFF FOR CARDIACF MONITORING. REPLACED. PT STILL IN UNCONTROLLED A-FIB WITH PVC'S. LEFT FOOT HAS VASCULAR DISCOLORATION. COOL TO TOUCH. DOPPLER PULSE.
--- NOTE | 2017-04-02 09:43 | NUR ---
NUTRITION MONITORING & EVAL CHART REVIEWED, PT S/P HEART CATH. DIET ADVANCED TO AHA. WILL MONITOR PO INTAKE, PT PROGRESS. RD FOLLOWING
[2017-04-02] MEDS ORDERED: BAYER CHEWABLE81 MG PO (11:09)
[2017-04-02] MEDS ORDERED: CORDARONE200 MG PO (11:09)
--- NOTE | 2017-04-02 11:43 | NUR ---
* Is the patient Alert and Oriented? Yes 0 * PCP Dr. Garcia 0 * Pharmacy [facility] 0 * Preadmission Environment Snf Facility 0 * Facility Name [facility] 0 * Partial ADLs (Assistance needed) Ambulation Bathing Dressing Medication Management Toileting 0 * Equipment Bedside Commode Rolling Walker Shower Chair Wheelchair 0 * List name and contact numbers for known caregivers / representatives who currently or will assist patient after discharge: Spouse - Maicol Cali [phone] 0 * Additional services required to return to the preadmission environment? Yes 0 * Can the patient safely return to the preadmission environment? Yes Patient Name: PALOMA CALI Admission Status: Elective Accout number: [id number] Admission Date: 03-31-2017 : 1945 Admission Diagnosis: Attending: VIRGIE Current LOS: 2 Anticipated DC Date: 04-02-2017 Planned Disposition: Snf Facility Primary Insurance: MEDICARE A & B Discharge Planning Comments: CM met with patient to assess dc plans/needs. Patient is alert & oriented x 2. Spoke with spouse, Maicol, via telephone. He reports prior to admission patient was at [facility] for physical therapy. Spoke with Niyah at [facility]. She reports patient was in a SNF bed at facility. She was primarily using a WC at the facility, but was working with PT. At wy, patient will return to a SNF bed. She will transport via ambulance due to inability to sit in a WC for an extended period of time. H&P & Med Rec faxed to facility. Patient & spouse in agreement with plan. Nursing to call report [phone]. Remote Sensing Technologist: Yvonne Cordova
--- NOTE | 2017-04-02 13:57 | NUR ---
PT HAS HAD LUNCH. 75% CONSUMED. POTASSIUM RIDERS COMPLETE. ORDER FOR REDRAW TO CHECK LEVEL HAS BEEN ENTERED. BLOOD DRAWN. AWAITING RESULTS. WASHED AND DETANGLED PATIENT HAIR. WILL BATHE PRIOR TO DISCHARGE.
--- NOTE | 2017-04-02 14:13 | NUR ---
PT POTASSIUM REDRAW VALUE 3.1. ELECTROLYTE REPLACEMENT ORDERED. 10MEQ IV STARTED AND 40MEQ ORAL DOSE PROVIDED. WILL RECHECK AGAIN BEFORE DISCHARGING PATIENT. PT HR 101 UNCONTROLLED A-FIB WITH SIGNS OF TRYING TO CONVERT TO SINUS.
--- NOTE | 2017-04-02 15:50 | NUR ---
YANNA WITH [facility] CALLED ASKING FOR STATUS UPDATE ON PATIENT IF SHE WOULD BE RETURNING TODAY. LET HER KNOW SHE WOULD. WE WERE REPLACING POTASSIUM AT THIS TIME AND WILL REDRAW BEFORE LETTING PATIENT DISCHARGE. ALL PAPERWORK HAS BEEN COMPLETE. JUST NEED TO CONTACT TRANSPORT ONCE PATIENT ABLE TO GO. PATIENT HAD 1 STENT TO [facility]. NEW MEDICATIONS: ASPIRIN 81MG AND AMIODARONE 200MG. PLAVIX 75MG. PT HAD BOWEL MOVEMENT 04/01. 3 EPISODES OF URINARY INCONTINENCE TODAY. PT HAS BILATERAL BRUISES ON ARMS. LARGE BRUIS ON LEFT HIM. IS A DARK ESCHAR ULCER ON PT LEFT HEEL. PT WAS ON TORADOL PRIOR TO ADMISSION, WAS D/C'D AT INTAKE FOR SOME REASON AND LISTED TAKING NORCO. IF PATIENT IS TO RETURN TO FACILITY ON NORCO, WILL NEED A PRESCRIPTION WRITTEN. WAS ON TORADOL BECAUSE PRIMARY REFUSED TO REFILL NORCO REQUEST. WILL CALL FACILITY ONCE AMBULANCE SERVICE IS ON THE WAY.
[2017-04-02] MEDS ORDERED: ULTRAM50 MG PO (16:49)
--- NOTE | 2017-04-02 17:19 | NUR ---
REQUEST TO [facility] FOR AMBULANCE TRANSFER MADE. SPOKE WITH WEN. TRUCK SHOULD ARRIVE FOR TRANSPORT WITHIN THE HOUR.
--- NOTE | 2017-04-02 17:46 | NUR ---
PT HAD ANOTHER EPISODE OF INCONTINENCE OF URINE. CLEANED UP AND NEW BRIEF PLACED ON PATIENT. GOT A CALL FROM [facility]. MAY BE 2 HOURS BEFORE IMPORT/EXPORT ANALYST DUE TO EMERGENCY.
--- NOTE | 2017-04-02 17:49 | NUR ---
CALLED [facility] AND SPOKE WITH MARCELLUS. LET HER KNOW THAT TRANSPORT HAS BEEN DELAYED AND THAT I WOULD CALL SOON THEY ARRIVED TO ARCHITECTURE MANAGER PATIENT. DID NOT INDICATE FACILITY WOULD NOT ACCEPT TRANSFER LATE. WILL CONTINUE TO PROCEED WITH DISCHARGE AND TRANSFER.
--- NOTE | 2017-04-02 17:50 | NUR ---
PT IV IN LEFT FOREARM REMOVED. TIP INTACT. NO BLEEDING.
--- NOTE | 2017-04-02 19:00 | NUR ---
DURING DAY SHIFT, PT RECIEVED POTASSIUM. LEVEL IS NOW 3.9 ON RECHECK. PT HAS BEEN CLEARED TO TRANSFER BACK TO ALF IN [place]. REPORT WAS CALLED AND EMS CONTACTED BY [facility]. AWAITING THEIR ARRIVAL FOR TRANSFER.
--- NOTE | 2017-04-02 19:53 | NUR ---
EMS RECIEVED PT AT THIS TIME AND WILL TRANSFER TO PENITENTIARY.
--- NOTE | 2017-04-02 19:55 | NUR ---
CALLED [facility] AND NOTIFIED OF PT DEPARTURE. ALSO CONTACTED WITH UPDATE.
--- NOTE | 2017-04-03 16:11 | DS ---
PATIENT:PALOMA CALI :47 MEDICAL RECORD: [id number] DISCHARGE SUMMARY ADMISSION DATE: 03/31/17 DISCHARGE DATE: 04/02/17 DATE OF ADMISSION: 03/31/2017 DATE OF DISCHARGE: 04/02/2017 PROBLEM LIST: 1. Non-ST elevation myocardial infarction. 2. Atrial fibrillation. 3. Peripheral vascular disease. 4. General debility. U BRIEF HISTORY AND HOSPITAL COURSE: Transferred from [place] with non-ST elevation myocardial infarction, underwent intervention of the right, did well from this standpoint and discharged for return to retirement. Follow up in 1 month at [place]. ACTIVITY: As tolerated. DIET: AHA diet. TRANSINT:[id number] Voice Confirmation ID: [id number] DOCUMENT ID: [id number] JUAN PABLO BURTON MD at 1611 CC: [id number] DICTATION DATE: 04/02/17 1051 ADVANCED MANUFACTURING ENGINEER: 04/03/17 0128 DIS IN 04/02/17 [place] [id number] [place] [id number]
== END 2017-04-02 19:50 | DRG 249 ==
LOC: D.CATH 00:42 → D.CVICU 00:42
PROVIDERS: ADMIT Internal Medicine Interventional Cardiology
PROC: B2111ZZ Fluoroscopy of Multiple Coronary Arteries using Low Osmolar Contrast (ICD-10-PCS; 2017-03-31)
PROC: B2151ZZ Fluoroscopy of Left Heart using Low Osmolar Contrast (ICD-10-PCS; 2017-03-31)
PROC: 02703DZ Dilation of Coronary Artery, One Artery with Intraluminal Device, Percutaneous Approach (ICD-10-PCS; principal; 2017-03-31 09:14)
PROC: 4A023N7 Measurement of Cardiac Sampling and Pressure, Left Heart, Percutaneous Approach (ICD-10-PCS; 2017-03-31 09:14)
DX: I21.4 Non-ST elevation (NSTEMI) myocardial infarction (principal); I48.91 Unspecified atrial fibrillation; I73.9 Peripheral vascular disease, unspecified; E11.9 Type 2 diabetes mellitus without complications; Z86.73 Personal history of transient ischemic attack (TIA), and cerebral infarction without residual deficits; J44.9 Chronic obstructive pulmonary disease, unspecified; I10 Essential (primary) hypertension